=== PATIENT | male | born 1980 | race Caucasian/White ===

== ENCOUNTER 2016-11-26 11:17 | Inpatient (IN) | payer OTHER ==
--- NOTE | ~2016-11-26 | CR72 ---
[facility] A Service of [facility] RADIOLOGY TEXT RESULTS PATIENT: DAIANA KRAMER LOCATION: [facility] : 78 UNIT #: [id number] AGE: [address]: Carlos Magallon DO SEX: M ORDER DR: [id number] [facility] [address] [place], [place] [address] [id number] MR#: [id number] Acc #: [id number] NAME: DAIANA KRAMER : 1980 SEX: M STUDY DATE/TIME: 11/26/2016 11:38 UNIT: [facility] ROOM: STUDY DESCRIPTION: CR Chest Single View Portable Attending Physician: Carlos Magallon D.O. Ordering Physician: Carlos Magallon D.O. Primary Care Physician: Generic Doctor Not In System MEDICAL IMAGING REPORT This report is preliminary unless electronic signature is present EXAM Chest portable, 11/26/2016 11:38 hours HISTORY 36-year-old man complaining of cough, congestion today, coughing up blood today with nausea and vomiting. COMPARISON 12/15/2014 FINDINGS Portable upright chest demonstrates low lung volumes. Heart size is within normal limits. There is patchy medial right infrahilar density which could represent atelectasis or pneumonia. The lungs are otherwise clear and there are no effusions. IMPRESSION Low lung volume film with patchy density medial right lung base which could represent vascular crowding or atelectasis. Pneumonia cannot be excluded. Consider followup two-view chest film to reassess the medial right lung base. STAT * RESULT Dictated by... Cassi Mclain M.D. THIS IS AN ELECTRONICALLY VERIFIED REPORT Cassi Mclain M.D. at 11/26/2016 12:05 PM April TD: 11/26/2016 11:48 JOB #: [id number] [facility] A Service of [facility] RADIOLOGY TEXT RESULTS PATIENT: DAIANA KRAMER [id number] 78 UNIT #: [id number] AGE: [address]: Carlos Magallon DO SEX: M ORDER DR: MEDICAL IMAGING REPORT COPY
--- NOTE | ~2016-11-26 | CO ---
Unit #: [id number] #: [id number] Patient: DAIANA ELLSWORTH [id number] [address] [place], [place] [address] [id number] I MR#: [id number] NAME: DAIANA ELLSWORTH ROOM: 220 Age: 36 Sex: M Admission Date: 11/26/2016 : 1980 Attending Physician: Anupama Rdz M.D. CONSULTATION REPORT JOB NOTE: CC: DR. RDZ. HISTORY OF PRESENT ILLNESS Mr. Ellsworth is a 36-year-old white male, who presents with a 3-day history of cough, congestion, fever, and chills. He was seen in a clinic yesterday, apparently a strep screen was done on his throat, it was negative. He had complained of nasal congestion, cough, very sore throat. He worsened through the night and presented to the emergency room. Here, he was noted to have a white blood cell count 28633, chest x-ray suggested a mild right lower lobe infiltrate, and he has been admitted by Dr. Rdz. We were asked to see. His blood pressure is stable and his room air saturation is 98%. He was given 750 mg of Levaquin and started on normal saline. He was also given 125 of Solu-Medrol. In the ER note, he had some wheezing. PAST MEDICAL HISTORY Significant for asthma. Last time, he was on prednisone was about 2 years ago, he uses only albuterol, he had been on Advair in the past, he is not sure why he is no longer taking that. He also has a history of bipolar disorder. Has a history of diverticulitis. PAST SURGICAL HISTORY He has had cholecystectomy by Dr. Rodriguez. Appendectomy, umbilical hernia repair and mesh, various oral surgeries. MEDICATIONS Include lithium, Topamax, Abilify, prazosin, hydroxyzine and he thinks also other medicine called . ALLERGIES Sulfa, Tessalon Perles, eggs, Seroquel, and trazodone. SOCIAL HISTORY Lives with a roommate. Smoked half a pack a day, stopped on 09/22/2016. No alcohol or illicit drugs. FAMILY HISTORY Negative for lung disease. REVIEW OF SYSTEMS CONSTITUTIONAL: Has had fever and chills. HEENT: Some rhinorrhea and nasal congestion. PULMONARY: As noted. CARDIAC: Noted to have chest pain with coughing only. Unit #: [id number] #: [id number] Patient: DAIANA ELLSWORTH GI: No nausea or vomiting. : No hematuria or dysuria. ENDOCRINE: No polyuria or polydipsia. HEMATOLOGIC: No easy bruising or bleeding. SKIN: No rash. NEURO: No unilateral weakness or numbness. Does have a history of bipolar disorder. PHYSICAL EXAMINATION VITAL SIGNS: Blood pressure is 136/89, pulse 95, respiratory rate 14, afebrile. HEENT: Normocephalic and atraumatic. Pupils are equal, round, and reactive. Sclerae nonicteric. Nasal passages patent. Posterior pharynx clear. Mallampati IV. NECK: Supple. Trachea midline. No cervical or supraclavicular lymphadenopathy. LUNGS: Reveal some crackles in the right base. No wheezes. CARDIAC: Regular rate and rhythm. Could not appreciate murmur, rub, or gallop. ABDOMEN: Nontender. Bowel sounds present. No hepatosplenomegaly. EXTREMITIES: Without clubbing, cyanosis, or edema. Homans sign negative. No cords palpated. NEUROLOGIC: Awake, alert, and oriented x3. Cranial nerves grossly intact. Muscle strength symmetric bilaterally. Affect, calm. SKIN: Warm and dry. DIAGNOSTIC STUDIES LABORATORY RESULTS: Personally reviewed. IMAGING STUDIES: Chest x-ray reviewed. IMPRESSION 1. Right lower lobe community-acquired pneumonia. 2. Hemoptysis is likely secondary to above. 3. History of asthma. 4. Bipolar disorder. 5. History of tobacco abuse. PLAN Broad-spectrum antibiotics. Levaquin has been started. That will certainly be adequate. We will check good PA and lateral to get a better view of the chest and follow up on possible subtle infiltrate. We will obtain blood cultures and sputum cultures. If hemoptysis becomes more of problem or persist, we would consider bronchoscopy, but at this point I feel it is secondary to pneumonia, possibly even pneumococcal pneumonia. We will check urinary strep screen. Dictated by... Yao Ghosh M.D. LORENE/win TD: 11/27/2016 02:55 JOB #: [id number] Unit #: [id number] #: [id number] Patient: DAIANA ELLSWORTH CONSULTATION REPORT X Yao Ghosh MD CONSULTATION REPORT
--- NOTE | ~2016-11-26 | CR63 ---
[facility] A Service of [facility] RADIOLOGY TEXT RESULTS PATIENT: DAIANA KRAMER LOCATION: [facility] : 78 UNIT #: [id number] AGE: [address]: Anupama Gomez MD SEX: M ORDER DR: [id number] [address] [address] [id number] I MR#: [id number] Acc #: [id number] NAME: DAIANA KRAMER : 1980 SEX: M STUDY DATE/TIME: 11/27/2016 08:22 UNIT: [facility] ROOM: 220 STUDY DESCRIPTION: CR Chest 2 View Attending Physician: Anupama Gomez M.D. Ordering Physician: Yao Ghosh M.D. Primary Care Physician: Generic Doctor Not In System MEDICAL IMAGING REPORT This report is preliminary unless electronic signature is present EXAM Chest 2 views 11/27/2016 0822 hours HISTORY 36-year-old man with 1 day history of shortness of air and cough, coughing up blood, possible pneumonia. COMPARISON 11/26/2016. FINDINGS Upright PA and lateral views of the chest demonstrate normal cardiac, mediastinal and hilar contours. The lungs are well expanded and clear. There is no effusion or pneumothorax. IMPRESSION 2 view chest film with improved lung volumes. The lungs are clear. There is no effusion. Dictated by... Cassi Mclain M.D. THIS IS AN ELECTRONICALLY VERIFIED REPORT Cassi Mclain M.D. at 11/27/2016 11:43 AM ROMEO/lillian TD: 11/27/2016 09:25 JOB #: [id number] MEDICAL IMAGING REPORT [facility] A Service of [facility] RADIOLOGY TEXT RESULTS PATIENT: DAIANA KRAMER LOCATION: [facility] : 78 UNIT #: [id number] AGE: [address]: Anupama Gomez MD SEX: M ORDER DR: COPY
--- NOTE | ~2016-11-26 | CT55 ---
[facility] A Service of [facility] RADIOLOGY TEXT RESULTS PATIENT: DAIANA KRAMER LOCATION: [facility] : 78 UNIT #: [id number] AGE: [address]: Anupama Gomez MD SEX: M ORDER DR: [id number] [address] [facility]. [place], [place] [address] [id number] I MR#: [id number] Acc #: [id number] NAME: DAIANA KRAMER : 1980 SEX: M STUDY DATE/TIME: 11/27/2016 13:11 UNIT: [facility] ROOM: 220 STUDY DESCRIPTION: CT Chest W Con Attending Physician: Anupama Gomez M.D. Ordering Physician: Yao Ghosh M.D. Primary Care Physician: Generic Doctor Not In System MEDICAL IMAGING REPORT This report is preliminary unless electronic signature is present EXAM CT chest with contrast INDICATION 36-year-old male with history of coughing bloody mucus and vomiting for 4-[address] scan of the chest was performed with IV contrast. Coronal and sagittal reformatted images were obtained. This CT exam was performed with one or more of the following radiation dose reduction techniques: automatic exposure control, adjustment of mA and/or kV according to patient size, and iterative reconstruction. COMPARISON 11/27/2016 FINDINGS 4.0-5.0 mm nodule in the right lower lobe on image 37. There is no airspace consolidation. There is trace pleural fluid in the lung bases bilaterally. There is no suspicious lymphadenopathy. Limited imaging of the upper abdomen demonstrates findings suspicious for diffuse fatty infiltration of the liver. Cholecystectomy. The bone windows are unremarkable. IMPRESSION 1. There is a 4.0-5.0 mm nodule in the right lower lobe. Using the 2017 Fleischner's Society criteria this requires no further followup unless the patient is high risk for malignancy such as smoking history. If that is the case, then the patient should have a followup chest CT in 1 year. [facility] A Service [facility] RADIOLOGY TEXT RESULTS PATIENT: DAIANA KRAMER LOCATION: [facility] : 78 UNIT #: [id number] AGE: [address]: Anupama Gomez MD SEX: M ORDER DR: 2. There is no airspace consolidation. Dictated by... Thony Chakraborty M.D. THIS IS AN ELECTRONICALLY VERIFIED REPORT Thony Chakraborty M.D. at 11/27/2016 4:39 PM MARCIANO/gerson TD: 11/27/2016 15:30 JOB #: [id number] MEDICAL IMAGING REPORT COPY
--- NOTE | ~2016-11-26 | HP ---
Unit #: [id number] #: [id number] Patient: DAIANA ELLSWORTH [id number] [address] [address] [id number] I MR#: [id number] NAME: DAIANA ELLSWORTH ROOM: 220 Age: 36 Sex: M Admission Date: 11/26/2016 : 1980 Attending Physician: Anupama Gomez M.D. Primary Care Physician: Generic Doctor Not In System HISTORY AND PHYSICAL ADMISSION DIAGNOSES 1. Clinical pneumonia. 2. Hemoptysis with the pulmonary nodule. 3. History of asthma. 4. History of bipolar disorder and schizophrenia. HISTORY OF PRESENT ILLNESS Mr. Ellsworth is a 36-year-old gentleman, patient of Dr. Gomez, who comes to the emergency room with complaints of shortness of air, dyspnea for two to three days along with increasing cough and some bloody sputum. The patient also had some complaint of subjective fever and chills. The patient denies any chest pain, headache, dizziness, nausea, vomiting, diarrhea or abdominal pain. So, a 12-point review of systems on this patient is basically negative except as above. PAST MEDICAL HISTORY History of bipolar disorder, schizophrenia and asthma. PAST SURGICAL HISTORY Appendectomy, hysterectomy and hernia repair. SOCIAL HISTORY No history of tobacco, alcohol or illicit drugs. FAMILY HISTORY Unremarkable. ALLERGIES Sulfa, trazodone and Seroquel. HOME MEDICATIONS 1. [place]ada. 2. Topamax. 3. Abilify. 4. Prazosin. 5. Hydroxyzine. 6. Ventolin. 7. Epi pen. PHYSICAL EXAMINATION GENERAL APPEARANCE: The patient is a very pleasant, 36-year-old gentleman in no acute distress. VITAL SIGNS: Blood pressure 130/84. Heart rate 101. Respirations 20. Temperature 97.8. Unit #: [id number] #: [id number] Patient: DAIANA ELLSWORTH HEENT: Head is atraumatic. Pupils equal, round and reactive to light and accommodation. Extraocular muscles intact. Oropharynx clear. NECK: No mass. No JVD. No bruits. LUNGS: Diminished at bases slightly. CARDIOVASCULAR: S1, S2. No murmurs. ABDOMEN: Soft, nontender, nondistended. LOWER EXTREMITIES: Without any cyanosis, clubbing or edema. NEUROLOGIC: Patient grossly intact. No focal deficits. DIAGNOSTIC STUDIES LABORATORY: White count 14.5, hemoglobin and hemoglobin 14.5 and 43.1. IMAGING: Chest x-ray negative. CT showed some pulmonary nodule. ASSESSMENT AND PLAN 1. (1) pneumonia. Continue IV antibiotics. Pulmonary follows. 2. Pulmonary nodule with hemoptysis. We will discuss with Pulmonary for further evaluation. 3. History of asthma, at the baseline, continue bronchodilators. 4. History of bipolar disorder and schizophrenia. Continue home medications. 5. GI and DVT prophylaxis with some Protonix and SCDs. Dictated by Eddie Diaz/rajiv TD: 11/28/2016 07:03 JOB #: [id number] HISTORY AND PHYSICAL X Bradford Sheikh MD HISTORY AND PHYSICAL
--- NOTE | ~2016-11-26 | DS ---
Unit #: [id number] #: [id number] Patient: DAIANA KRAMER [id number] [address] [place], [place] [address] [id number] I MR#: [id number] NAME: DAIANA KRAMER ROOM: 220 Age: 36 Sex: M Admission Date: 11/26/2016 : 1980 Discharge Date: 11/28/2016 Attending Physician: Anupama Gomez M.D. Primary Care Physician: Generic Doctor Not In System DISCHARGE SUMMARY DISCHARGE DIAGNOSES 1. Question of pneumonia which was ruled out. 2. Pulmonary nodule. 3. Hemoptysis. 4. Asthma. 5. Bronchitis. 6. History of bipolar disorder. 7. History of schizophrenia. CONSULTANTS Dr. Paul Ghosh, pulmonary. DIAGNOSTIC STUDIES 1. Chest x-ray unremarkable. 2. CT of the chest showed some pulmonary nodules. 3. Procalcitonin level 0.07 HISTORY Please refer to History and Physical done by me for initial presentation on this gentleman. HOSPITAL COURSE Questionable pneumonia. Patient was treated with IV Zithromax and Rocephin. Patient is afebrile. White count is 15,000, however, patient was also on steroids. Procalcitonin level negative. Patient was evaluated by Pulmonary and stable to be discharged on p.o. Z-Gaurang. Pulmonary nodule with hemoptysis. Hemoptysis resolved. Again, status post evaluation by Pulmonary. Outpatient followup with Pulmonary in two to three weeks. Will probably need followup imaging study. History of asthma, stable. Continue home medications. History of bipolar disorder and schizophrenia. Continue home medications. DISCHARGE MEDICATIONS 1. Z-Gaurang. 2. Tapering dose of prednisone. 3. Ventolin one puff inhaled q.4 h. 4. Topamax 25 mg b.i.d. 5. Ehrenfeld 300 mg q.a.m. 6. Ehrenfeld 600 mg h.s. 7. Abilify 10 mg daily. 8. Hydroxyzine 25 mg p.r.n. t.i.d. for anxiety. Unit #: [id number] #: [id number] Patient: DAIANA KRAMER 9. Prazosin 2 mg p.o. daily. 10. EpiPen p.r.n. DISPOSITION The patient is being discharged home to follow up with Primary Care Physician in two to three days and Pulmonary in two to three weeks. Dictated by... Eddie Diaz/marco TD: 11/28/2016 16:04 JOB #: [id number] DISCHARGE SUMMARY X Bradford Sheikh MD X DISCHARGE SUMMARY
[~2016-11-26 11:17] MED LIST: ABILIFY10 MG PO; ABILIFY5 MG PO; ADRENACLIC0.3 MG/0.3 SUBQ; ADVIL LIQUI-GE200 MG PO; ALBUTEROL20 ml INH; ARIPIPRAZOLE10 MG PO; ARIPIPRAZOLE5 MG PO; BENTYL20 M1 PO; DESYREL50 MG PO; DOCUSATE SODIU100 MG PO; EPINEPHRIN0.3 MG/0.1 IM; HYDROCODON-ACE1 EAC7 PO; HYDROXYZINE HCL25 M1 PO; LITHIUM CARBON300 M1 PO; LITHIUM CARBON600 MG PO; LITHOBID SR300 MG PO; MINIPRESS PO; NICOTINE TRANSD14 MG EXT; NICOTINE TRANSDE7 MG EXT; ONDANSETRON ODT4 MG PO; ORAJEL TOP; PAIN RELIEF500 M2 PO; PERIDEX480 ML PO; Q-PAP325 MG PO; SENNA-LAX8.6 M1 PO; SEROQUEL50 M1 PO; TOPAMAX25 MG PO; TRAMADOL HCL50 M1 PO
[2016-11-26 11:58] LABS: BASOPHIL% 0.3 % (0-2.5); EOSINOPHIL# 0.2 X10e3 (0-0.7); EOSINOPHIL% 1.3 % (0.0-7.0); HEMATOCRIT 43.1 % (38.0-50.0); HEMOGLOBIN 14.5 gm/dL (13.0-16.0); LYMPHOCYTE# 1.4 X10e3 (1.0-3.5); LYMPHOCYTE% 9.6 % (17.0-45.0); MEAN CELL VOLUME 92.3 FL (83-96); MEAN CORPUSCULAR HGB CONC 33.6 g/dL (30-36); MEAN PLATELET VOLUME 8.2 FL (6.5-11.5); MONOCYTE# 0.9 X10e3 (0-1.0); MONOCYTE% 6.3 % (3.0-12.0); NEUTROPHIL# 11.9 X10e3 (1.5-7.1); NEUTROPHIL% 82.5 % (40-75); PLATELET COUNT 187 X10e3 (140-420); RED BLOOD COUNT 4.67 X10e (3.90-5.60); RED CELL DISTRIBUTION WIDTH 12.9 % (11.0-15.5); WHITE BLOOD COUNT 14.5 X10e3 (4.0-10.5)
[2016-11-26 12:00] LABS: DIFF IND NO; INFLUENZA A NEG (NEG); INFLUENZA B NEG (NEG)
[2016-11-26 12:02] LABS: POC - CKMB 1.3 ng/mL (0.0-7.9); POC - TROPONIN <0.05 ng/mL (<=0.05)
[2016-11-26 12:24] LABS: ALBUMIN SERUM 4.4 g/dL (3.5-5.0); ALKALINE PHOSPHATASE 58 U/L (32-92); ALT (SGPT) 94 U/L (10-40); AST (SGOT) 39 U/L (10-42); BILIRUBIN, DIRECT 0.1 mg/dL (0.0-0.2); BILIRUBIN,INDIRECT 0.8 mg/dL (0.0-0.9); BILIRUBIN,TOTAL 0.9 mg/dL (0.2-2.0); BLOOD UREA NITROGEN 13 mg/dL (9-23); BUN/CREATININE RATIO 10.83; CARBON DIOXIDE 20 mmol/L (22-31); CHLORIDE 105 mmol/L (100-111); CREATININE SERUM 1.2 mg/dL (0.6-1.4); GLOM FILT RATE Estimated ABOVE60 mL/min (>60); GLUCOSE FASTING 91 mg/dL (70-110); PROTEIN TOTAL SERUM 7.6 g/dL (6.0-8.3); SODIUM 135 mmol/L (135-145)
[2016-11-26] MEDS ORDERED: LITHIUM PO ×2 (15:06→22:03)
[2016-11-26] MEDS ORDERED: TOPAMAX25 MG PO (15:06)
[2016-11-26] MEDS ORDERED: ABILIFY10 MG PO (15:07)
[2016-11-26] MEDS ORDERED: PRAZOSIN HCL2 MG PO (15:08)
[2016-11-26] MEDS ORDERED: HYDROXYZINE HCL25 M1 PO (15:09)
[2016-11-26] MEDS ORDERED: ALBUTEROL17 GM (20:00)
[2016-11-26] MEDS ORDERED: EPIPEN0.3 MG/0.1 IM (20:01)
[2016-11-27] MEDS ORDERED: ALBUTEROL17 GM INH (01:54)
[2016-11-27 15:10] LABS: PARTIAL THROMBOPLASTIN TIME 24.9 SECONDS (23.5-31.3)
[2016-11-28 05:41] LABS: HEMATOCRIT 38.9 % (38.0-50.0); HEMOGLOBIN 12.8 gm/dL (13.0-16.0); MEAN CELL VOLUME 93.9 FL (83-96); MEAN CORPUSCULAR HGB CONC 33.1 g/dL (30-36); MEAN PLATELET VOLUME 8.5 FL (6.5-11.5); RED BLOOD COUNT 4.14 X10e (3.90-5.60); RED CELL DISTRIBUTION WIDTH 13.6 % (11.0-15.5); WHITE BLOOD COUNT 15.4 X10e3 (4.0-10.5)
[2016-11-28 06:03] LABS: BLOOD UREA NITROGEN 19 mg/dL (9-23); CALCIUM SERUM 8.3 mg/dL (8.4-10.2); CARBON DIOXIDE 21 mmol/L (22-31); CHLORIDE 108 mmol/L (100-111); GLOM FILT RATE Estimated ABOVE60 mL/min (>60); GLUCOSE FASTING 99 mg/dL (70-110); POTASSIUM 3.8 mmol/L (3.5-5.1); SODIUM 136 mmol/L (135-145)
[2016-11-28 06:10] LABS: PROCALCITONIN 0.07 NG/ML
[2016-11-28] MEDS ORDERED: PREDNISONE PO (16:12)
[2016-11-28] MEDS ORDERED: AZITHROMYCIN1 GM PO (16:14)
== END 2016-11-28 17:59 | disposition home or self-care (01) | DRG 204 ==
LOC: CED 11:17 → CEDOF 16:28 → C2A 19:43
PROVIDERS: Emergency Medicine; Hospitalist; Internal Medicine
DX: R91.8 Other nonspecific abnormal finding of lung field (principal); R04.2 Hemoptysis; J45.909 Unspecified asthma, uncomplicated; F31.9 Bipolar disorder, unspecified; F20.9 Schizophrenia, unspecified; Z87.891 Personal history of nicotine dependence; Z90.49 Acquired absence of other specified parts of digestive tract; Z88.2 Allergy status to sulfonamides; Z88.8 Allergy status to other drugs, medicaments and biological substances; Z91.018 Allergy to other foods
CPT/HCPCS: 36415; 71010; 71020; 71260; 80048; 80076; 82308; 82553; 83605; 84484; 85025; 85027; 85379; 85610; 85730; 87070; 87205; 87804; 87899; 94640; 94760; 96361; 96374; 99285; J0456; J0696; J2920; J2930; Q9967